=== PATIENT | male | born 1990 | race Caucasian/White ===

== ENCOUNTER 2017-05-18 09:52 | Emergency (ER) | payer SELFPAY ==
[~2017-05-18] VITALS: Ht 172.7 cm; Wt 81.6 kg
[2017-05-18] MEDS ORDERED: NS IV 1000 ML 1,000 ML ONE (10:05)
[2017-05-18] MEDS ORDERED: KETOROLAC 30 MG/ML VIAL ONE (10:05)
[2017-05-18] MEDS ORDERED: fentaNYL INJECTION 100 MCG/2 ML AMP ONE (10:13)
[2017-05-18 10:37] LABS: BASOPHILS % (AUTO) 0 % (0-10); EOSINOPHILS % (AUTO) 0 % (0-10); LYMPHOCYTES # (AUTO) 0.7 X 10^3 (1.0-4.0); LYMPHOCYTES % (AUTO) 7 % (12-44); MEAN CORPUSCULAR HEMOGLOBIN 32 PG (25-34); MEAN CORPUSCULAR HGB CONC 34 G/DL (32-36); MEAN CORPUSCULAR VOLUME 93 FL (80-99); MEAN PLATELET VOLUME 11.3 FL (7.4-10.4); MONOCYTES # (AUTO) 0.7 X 10^3 (0.0-1.0); MONOCYTES % (AUTO) 6 % (0-12); NEUTROPHILS # (AUTO) 9.4 X 10^3 (1.8-7.8); NEUTROPHILS % (AUTO) 87 % (42-75); PLATELET COUNT 174 10^3/uL (130-400); RED BLOOD COUNT 4.57 10^6/uL (4.35-5.85); RED CELL DISTRIBUTION WIDTH 12.1 % (10.0-14.5); WHITE BLOOD COUNT 10.8 10^3/uL (4.3-11.0)
[2017-05-18 10:52] LABS: ALBUMIN 4.6 GM/DL (3.2-4.5); BAND NEUTROPHILS 6 %; BILIRUBIN,TOTAL 1.1 MG/DL (0.1-1.0); CALCIUM 10.1 MG/DL (8.5-10.1); CREATININE SERUM 1.46 MG/DL (0.60-1.30); EOSINOPHILS % (MANUAL) 2 %; LYMPHOCYTES % (MANUAL) 9 %; NEUTROPHILS % (MANUAL) 78 %; POTASSIUM 3.6 MMOL/L (3.6-5.0); TOTAL PROTEIN 7.9 GM/DL (6.4-8.2)
[2017-05-18] MEDS ORDERED: fentaNYL INJECTION 100 MCG/2 ML AMP IVP ONE (11:00)
--- NOTE | 2017-05-18 11:00 | ED GU-Male ---
General Chief Complaint: Abdominal/GI Problems Stated Complaint: KIDNEY STONES Nursing Triage Note: PT C/O KIDNEY STONES X 1 WEEK. HE REPORTS HE HAS BEEN PASSING THEM UNTIL YESTERDAY, WHEN HE BEGAN HAVING DIFFICULTY URINATING. Source: patient, family Exam Limitations: no limitations History of Present Illness Time seen by provider: 10:54 Initial Comments This 27-year-old white male presents with a history of kidney stones that he's been passing repeatedly for the last week. Last 24 hours patient has gone into urinary retention. There's been no associated fever, chills, flank pain, headache or stiff neck, productive cough, nausea vomiting or diarrhea. Patient is complaining of sharp lower abdominal discomfort. Allergies and Home Medications Allergies Coded Allergies: Penicillins (Verified Allergy, Unknown, 05/18/17) aspirin (Verified Allergy, Unknown, 05/18/17) Constitutional: No chills, No fever EENTM: No hearing loss, No vision loss Respiratory: No cough Cardiovascular: No chest pain Gastrointestinal: abdominal pain, No diarrhea, No nausea, No vomiting Genitourinary: denies burning, denies frequency, other Musculoskeletal: No back pain (urinary retention) Skin: No change in color, No rash Psychiatric/Neurological: No Symptoms Reported Endocrine: No Symptoms Reported Hematologic/Lymphatic: No Symptoms Reported Past Qnyozxr-Agwjov-Ildyyz Hx Patient Social History Alcohol Use: Denies Use Recreational Drug Use: No Smoking Status: Never a Smoker 2nd Hand Smoke Exposure: No Recent Foreign Travel: No Contact w/Someone Who Travel: No Recent Infectious Disease Expo: No Recent Hopitalizations: No Seasonal Allergies Seasonal Allergies: No Surgeries History of Surgeries: Yes (HERNIA X3) Neurological History of Neurological Disord: Yes (ASPBERGERS) Genitourinary History of Genitourinary Disor: Yes Genitourinary Disorders: Kidney Stones Psychosocial History of Psychiatric Problem: Yes Behavioral Health Disorders: Bipolar Reviewed Nursing Assessment Reviewed/Agree w Nursing PMH: Yes Physical Exam Vital Signs Vital Sign - Last 12Hours 05/18/17 10:06 Temp 98.0 Pulse 70 Resp 20 B/P (MAP) 126/79 (95) Pulse Ox 100 O2 Delivery Room Air Capillary Refill : Less Than 3 Seconds General Appearance: WD/WN HEENT: normal ENT inspection Neck: normal inspection Cardiovascular: normal peripheral pulses, regular rate, rhythm Respiratory: chest non-tender, lungs clear, normal breath sounds Gastrointestinal: normal bowel sounds, non tender, soft Back: normal inspection Extremities: normal range of motion, non-tender, normal inspection Neurologic/Psychiatric: no motor/sensory deficits, alert, normal mood/affect Skin: normal color, warm/dry Progress/Results/Core Measures Suspected Sepsis Recent Fever Within 48 Hours: No Infection Criteria Present: None New/Unexplained Altered Menta: No Sepsis Screen: No Definite Risk Sepsis Diagnosis: SIRS Temperature:98.0 Pulse: 70 Respiratory Rate: 20 Laboratory Tests 05/18/17 10:05: White Blood Count 10.8 Blood Pressure 126 /79 Mean: 95 Laboratory Tests 05/18/17 10:05: Creatinine 1.46H, Platelet Count 174, Total Bilirubin 1.1H Results/Orders Lab Results Laboratory Tests Test 05/18/17 10:05 Range/Units White Blood Count 10.8 4.3-11.0 10^3/uL Red Blood Count 4.57 4.35-5.85 10^6/uL Hemoglobin 14.5 13.3-17.7 G/DL Hematocrit 43 40-54 % Mean Corpuscular Volume 93 80-99 FL Mean Corpuscular Hemoglobin 32 25-34 PG Mean Corpuscular Hemoglobin Concent 34 32-36 G/DL Red Cell Distribution Width 12.1 10.0-14.5 % Platelet Count 174 130-400 10^3/uL Mean Platelet Volume 11.3 H 7.4-10.4 FL Neutrophils (%) (Auto) 87 H 42-75 % Lymphocytes (%) (Auto) 7 L 12-44 % Monocytes (%) (Auto) 6 0-12 % Eosinophils (%) (Auto) 0 0-10 % Basophils (%) (Auto) 0 0-10 % Neutrophils # (Auto) 9.4 H 1.8-7.8 X 10^3 Lymphocytes # (Auto) 0.7 L 1.0-4.0 X 10^3 Monocytes # (Auto) 0.7 0.0-1.0 X 10^3 Eosinophils # (Auto) 0.0 0.0-0.3 10^3/uL Basophils # (Auto) 0.0 0.0-0.1 10^3/uL Neutrophils % (Manual) 78 % Lymphocytes % (Manual) 9 % Monocytes % (Manual) 5 % Eosinophils % (Manual) 2 % Band Neutrophils 6 % Blood Morphology Comment NORMAL Sodium Level 135 135-145 MMOL/L Potassium Level 3.6 3.6-5.0 MMOL/L Chloride Level 99 98-107 MMOL/L Carbon Dioxide Level 22 21-32 MMOL/L Anion Gap 14 5-14 MMOL/L Blood Urea Nitrogen 13 7-18 MG/DL Creatinine 1.46 H 0.60-1.30 MG/DL Estimat Glomerular Filtration Rate 58 BUN/Creatinine Ratio 9 Glucose Level 111 H 70-105 MG/DL Calcium Level 10.1 8.5-10.1 MG/DL Total Bilirubin 1.1 H 0.1-1.0 MG/DL Aspartate Amino Transf (AST/SGOT) 22 5-34 U/L Alanine Aminotransferase (ALT/SGPT) 22 0-55 U/L Alkaline Phosphatase 65 40-136 U/L Total Protein 7.9 6.4-8.2 GM/DL Albumin 4.6 H 3.2-4.5 GM/DL My Orders Orders - EDGAR GROSS MD Ketorolac Injection (Toradol Injection) (05/18/17 10:05) Ns Iv 1000 Ml (Sodium Chloride 0.9%) (05/18/17 10:05) Fentanyl Injection (Sublimaze Injection (05/18/17 10:13) Ct Abd/Pelvis Wo(Kidney Stone) (05/18/17 10:29) Ua Culture If Indicated (05/18/17 10:29) Cbc With Automated Diff (05/18/17 10:29) Comprehensive Metabolic Panel (05/18/17 10:29) Manual Differential (05/18/17 10:05) Oneil Cath Insertion (05/18/17 10:51) Fentanyl Injection (Sublimaze Injection (05/18/17 11:00) Medications Given in ED Current Medications Medications Dose Ordered Sig/Hermelinda Route Start Time Stop Time Status Last Admin Dose Admin Fentanyl Citrate 50 mcg ONCE ONCE IVP 05/18/17 11:00 05/18/17 11:01 DC 05/18/17 11:25 50 MCG Fentanyl Citrate 100 mcg STK-MED ONCE .ROUTE 05/18/17 10:13 05/18/17 10:15 DC 05/18/17 10:15 100 MCG Ketorolac Tromethamine 30 mg STK-MED ONCE .ROUTE 05/18/17 10:05 05/18/17 10:07 DC 05/18/17 10:10 30 MG Sodium Chloride 1,000 ml @ ud STK-MED ONCE .ROUTE 05/18/17 10:05 05/18/17 10:07 DC 05/18/17 10:10 0 MLS/HR Vital Signs/I&O Vital Sign - Last 12Hours 05/18/17 10:06 Temp 98.0 Pulse 70 Resp 20 B/P (MAP) 126/79 (95) Pulse Ox 100 O2 Delivery Room Air Capillary Refill : Less Than 3 Seconds Blood Pressure Mean: 95 Progress Note : Time: 11:49 Progress Note The patient's CT of the abdomen for stone demonstrated multiple ureteral calculi none of which were obstructing. There was a 6 mm stone in the proximal urethra. Oneil catheter was passed and the patient's mild urinary retention ( approximately 300 mL) was relieved. I recommended to the patient that he may follow up closely with his physician in [place]. The patient was agreeable to leaving the [place] and traveling to [place] to be seen by his care givers tomorrow. Departure Impression Impression: Primary Impression: Kidney stones Additional Impression: Urinary retention Disposition: 01 HOME, SELF-CARE Condition: Improved Departure-Patient Inst. Decision time for Depature: 11:52 Referrals: NO,LOCAL PHYSICIAN (PCP) Primary Care Physician Patient Instructions: Kidney Stones in Adults Add. Discharge Instructions: Follow-up with your doctor in [place] tomorrow. Return if any problems or questions. All discharge instructions reviewed with patient and/or family. Voiced understanding. EDGAR GROSS MD May 18, 2017 11:00
--- NOTE | 2017-05-18 11:34 | Diagnostic Imaging Report ---
PROCEDURE: CT urinary tract, rule out kidney stone. TECHNIQUE: Multiple contiguous axial images were obtained through the abdomen and pelvis without the use of intravenous contrast. INDICATION: Pelvic pain. No urination x1 day. Correlation study: None FINDINGS: The urinary bladder is rather significantly distended. There is a 6 mm stone just below the level of the prostate likely within the membranous portion of the urethra. The prostatic urethra is dilated. The urinary bladder is rather significantly dilated. The right ureter and renal pelvis is rather significantly dilated. No obstructing renal stone is suggested. There is a small calcification which appears to be just posterior to the distal right urethra. There is however a 4 mm stone in the low left urethra just proximal to ureterovesical junction. This results in only mild to moderate left-sided obstructive uropathy. There are several additional larger nonobstructing stones inferior pole of the right kidney. There is thinning of the right renal parenchyma. The remainder of the examination demonstrates the lung bases clear. Unenhanced liver, gallbladder, spleen, pancreas and adrenal glands unremarkable. Abdominal aorta normal in contour. Gastrointestinal tract without obstruction or inflammation. No evidence for appendicitis. IMPRESSION: 1. 6 mm stone likely in region of the membranous portion of the urethra. This results in rather significant distention of the urinary bladder. 2. 4 mm stone distal left ureter just proximal to ureterovesical junction results in only mild to perhaps moderate left-sided obstructive uropathy. 3. The right renal collecting system is rather significantly dilated without definitive obstructing right-sided ureteral stone. Question of a tiny stone may be just adjacent to or perhaps within the distal right ureter. Additional nonobstructing right renal stones are present. Dictated by: Dictated on workstation # [id number]
[2017-05-18 12:20] VITALS: BP 133/76
== END 2017-05-18 12:20 | disposition home or self-care (01) ==
LOC: ER 09:54
DX: N20.0 Calculus of kidney (principal); F31.9 Bipolar disorder, unspecified; Z87.19 Personal history of other diseases of the digestive system
CPT/HCPCS: 36415; 74176; 80053; 85007; 85027